=== PATIENT | female | born 1960 | race Caucasian/White ===

== ENCOUNTER → 2024-01-10 06:18 | Outpatient (REF) | payer OTHER, SELFPAY | LOC: MRI 06:18 | PROVIDERS: ATTENDING PHYSICIAN Psychiatry & Neurology Behavioral Neurology & Neuropsychiatry; FAMILY PHYSICIAN Physician Assistant Medical | DX: G30.9 Alzheimer's disease, unspecified (principal) | CPT/HCPCS: 70551 ==